=== PATIENT | male | born 1975 | race Caucasian/White ===

== ENCOUNTER 2021-05-05 21:53 | Emergency (ER) | payer OTHER ==
[~2021-05-05] VITALS: Ht 177.8 cm; Wt 86.2 kg
[2021-05-05] MEDS ORDERED: LEXAPRO 10 MG T10 M1 PO (22:30)
[2021-05-06] MEDS ORDERED: CEPHALEXIN500 MG PO (00:15)
[2021-05-06 00:41] VITALS: BP 132/79
== END 2021-05-06 00:41 | disposition home or self-care (01) ==
LOC: M.ERS 21:53
DX: S61.217A Laceration without foreign body of left little finger without damage to nail, initial encounter (principal); X58.XXXA Exposure to other specified factors, initial encounter; Y93.89 Activity, other specified; Y92.89 Other specified places as the place of occurrence of the external cause; Y99.8 Other external cause status